=== PATIENT | female | born 2000 | race Caucasian/White ===

== ENCOUNTER 2020-09-11 04:48 | Emergency (ER) | payer SELFPAY ==
[2020-09-11] MEDS ORDERED: Ibuprofen 200 MG TAB ONE (05:01)
--- NOTE | 2020-09-11 09:45 | RAD ---
RIGHT WRIST 3 VIEWS: Date: 09/11/2020 No fracture or carpal abnormality was seen. The carpal relationships appeared normal. The metacarpals and distal radius and ulna all appeared normal as well. IMPRESSION: No acute findings. POS: HOME
--- NOTE | 2020-09-11 09:45 | RAD ---
RIGHT KNEE 5 VIEWS: Date: 09/11/2020 No fracture or joint effusion seen. The joint space appears normal. IMPRESSION: No acute findings. POS: HOME
== END 2020-09-11 05:55 | disposition home or self-care (01) ==
LOC: BURERS 04:48 → EDBD 04:48 → BURERS 05:55
DX: S80.01XA Contusion of right knee, initial encounter (principal); V89.2XXA Person injured in unspecified motor-vehicle accident, traffic, initial encounter